=== PATIENT | male | born 1955 | race Caucasian/White ===

== ENCOUNTER → 2017-08-22 | Outpatient (REF) | payer OTHER ==
[2017-08-22 12:22] LABS: FREE T4 1.27 NG/DL (0.76-1.46)
== END ==
LOC: M LABDRAWC 11:37
PROVIDERS: ATTEND Internal Medicine Endocrinology, Diabetes & Metabolism
DX: C73 Malignant neoplasm of thyroid gland (principal)

== ENCOUNTER → 2018-02-02 | Outpatient (REF) | payer OTHER ==
[2018-02-02 12:06] LABS: ALBUMIN 3.9 GM/DL (3.2-5.2); ALBUMIN/GLOBULIN RATIO 1.26 (1.00-1.93); ALKALINE PHOSPHATASE 45 U/L (45-117); ALT/SGPT 27 U/L (12-78); ANION GAP 7 MEQ/L (8-16); AST/SGOT 18 U/L (7-37); BILIRUBIN,TOTAL 0.4 MG/DL (0.2-1.0); BLOOD UREA NITROGEN 25 MG/DL (7-18); CALCIUM LEVEL 8.7 MG/DL (8.8-10.2); CARBON DIOXIDE LEVEL 27 MEQ/L (21-32); CHLORIDE LEVEL 107 MEQ/L (98-107); CHOLESTEROL LEVEL 162 MG/DL (<200); CHOLESTEROL RISK RATIO 4.909 (<5); CREATININE FOR GFR 1.18 MG/DL (0.70-1.30); GLOMERULAR FILTRATION RATE > 60.0 (>49); GLUCOSE, FASTING 79 MG/DL (70-100); HDL CHOLESTEROL 33 MG/DL (>40); LDL CHOLESTEROL 92.6 MG/DL (<100); NON-HDL-C 129 MG/DL; POTASSIUM SERUM 4.2 MEQ/L (3.5-5.1); SODIUM LEVEL 141 MEQ/L (136-145); TRIGLYCERIDES LEVEL 182 MG/DL (<150)
== END ==
LOC: M SFHCCLAY 08:34
DX: E78.2 Mixed hyperlipidemia (principal)

== ENCOUNTER → 2018-10-19 | Outpatient (REF) | payer OTHER ==
[2018-10-23 16:39] LABS: THRYOGLOBULIN ANTIBODIES (ATA) < 1.0 IU/mL (0.0-0.9)
== END ==
LOC: M LABDRAWC 16:20
PROVIDERS: ATTEND Nuclear Medicine
DX: C73 Malignant neoplasm of thyroid gland (principal)

== ENCOUNTER → 2018-11-26 | Outpatient (REF) | payer OTHER ==
[2018-11-26 11:28] LABS: HEMATOCRIT 45.2 % (42.0-52.0); HEMOGLOBIN 15.4 g/dl (13.5-17.5); MEAN CORPUSCULAR HEMOGLOBIN 31.6 pg (27.0-33.0); MEAN CORPUSCULAR HGB CONC 34.1 g/dl (32.0-36.5); MEAN CORPUSCULAR VOLUME 92.6 fl (80.0-96.0); PLATELET COUNT, AUTOMATED 269 10^3/uL (150-450); RED BLOOD COUNT 4.88 10^6/uL (4.30-6.10); WHITE BLOOD COUNT 5.2 10^3/uL (4.0-10.0)
[2018-11-26 11:43] LABS: ALBUMIN 3.8 GM/DL (3.2-5.2); ALT/SGPT 37 U/L (12-78); BILIRUBIN,TOTAL 0.6 MG/DL (0.2-1.0); BLOOD UREA NITROGEN 16 MG/DL (7-18); CALCIUM LEVEL 8.9 MG/DL (8.8-10.2); CARBON DIOXIDE LEVEL 30 MEQ/L (21-32); CHLORIDE LEVEL 107 MEQ/L (98-107); CHOLESTEROL LEVEL 170 MG/DL (<200); CHOLESTEROL RISK RATIO 3.617 (<5); CREATININE FOR GFR 1.15 MG/DL (0.70-1.30); GLOMERULAR FILTRATION RATE > 60.0 (>49); GLUCOSE, FASTING 56 MG/DL (70-100); HDL CHOLESTEROL 47 MG/DL (>40); LDL CHOLESTEROL 97 MG/DL (<100); NON-HDL-C 123 MG/DL; SODIUM LEVEL 142 MEQ/L (136-145); TOTAL PROTEIN 6.6 GM/DL (6.4-8.2); TRIGLYCERIDES LEVEL 132 MG/DL (<150)
== END ==
LOC: M SFHCCLAY 07:40
PROVIDERS: ATTEND Family Medicine
DX: E03.9 Hypothyroidism, unspecified (principal); Z12.5 Encounter for screening for malignant neoplasm of prostate

== ENCOUNTER → 2020-01-15 | Outpatient (REF) | payer OTHER ==
[2020-01-15 17:00] LABS: FREE T4 1.76 NG/DL (0.76-1.46); THYROID STIMULATING HORMONE 0.141 uIU/ML (0.358-3.740)
[2020-01-17 14:09] LABS: THRYOGLOBULIN ANTIBODIES (ATA) < 1.0 IU/mL (0.0-0.9); THYROGLOBULIN QUANTITATIVE 44.2 ng/mL (1.4-29.2)
== END ==
LOC: M LABDRAWC 15:57
PROVIDERS: ATTEND Internal Medicine
DX: C73 Malignant neoplasm of thyroid gland (principal)

== ENCOUNTER → 2020-01-15 | Outpatient (REF) | payer OTHER ==
[2020-01-15 16:49] LABS: BLOOD UREA NITROGEN 19 MG/DL (7-18); CALCIUM LEVEL 8.9 MG/DL (8.8-10.2); CARBON DIOXIDE LEVEL 28 MEQ/L (21-32); CHLORIDE LEVEL 106 MEQ/L (98-107); CREATININE FOR GFR 1.18 MG/DL (0.70-1.30); GLOMERULAR FILTRATION RATE > 60.0 (>49); GLUCOSE, FASTING 87 MG/DL (70-100); POTASSIUM SERUM 4.3 MEQ/L (3.5-5.1); SODIUM LEVEL 140 MEQ/L (136-145)
== END ==
LOC: M LABDRAWC 15:54
PROVIDERS: ATTEND Student in an Organized Health Care Education/Training Program
DX: Z01.812 Encounter for preprocedural laboratory examination (principal)

== ENCOUNTER → 2020-02-20 | Outpatient (REF) | payer OTHER ==
[2020-02-20 17:56] LABS: ALT/SGPT 44 U/L (12-78); BILIRUBIN,TOTAL 0.6 MG/DL (0.2-1.0); BLOOD UREA NITROGEN 24 MG/DL (7-18); CALCIUM LEVEL 9.4 MG/DL (8.8-10.2); CARBON DIOXIDE LEVEL 27 MEQ/L (21-32); CHLORIDE LEVEL 105 MEQ/L (98-107); CREATININE FOR GFR 1.13 MG/DL (0.70-1.30); GLOMERULAR FILTRATION RATE > 60.0 (>49); GLUCOSE, FASTING 86 MG/DL (70-100); HEMATOCRIT 48.3 % (42.0-52.0); HEMOGLOBIN 16.5 g/dl (13.5-17.5); MEAN CORPUSCULAR HEMOGLOBIN 31.3 pg (27.0-33.0); MEAN CORPUSCULAR HGB CONC 34.2 g/dl (32.0-36.5); MEAN CORPUSCULAR VOLUME 91.5 fl (80.0-96.0); PLATELET COUNT, AUTOMATED 299 10^3/uL (150-450); POTASSIUM SERUM 4.2 MEQ/L (3.5-5.1); RED BLOOD COUNT 5.28 10^6/uL (4.30-6.10); SODIUM LEVEL 140 MEQ/L (136-145); TOTAL PROTEIN 7.4 GM/DL (6.4-8.2); WHITE BLOOD COUNT 5.8 10^3/uL (4.0-10.0)
== END ==
LOC: M SFHCCLAY 12:11
PROVIDERS: ATTEND Family Medicine
DX: K21.9 Gastro-esophageal reflux disease without esophagitis (principal); C73 Malignant neoplasm of thyroid gland

== ENCOUNTER → 2020-07-07 | Outpatient (CLI) | payer OTHER ==
[~2020-07-07] MED LIST: CBD OIL PO; LEVO175T2 PO
--- NOTE | 2020-07-07 12:45 | RADONC.CN ---
Radiation Oncology Hx/Consult Radiation Oncology Consult Date of Service: Jul 07, 2020 Pt Identifier Geovanni Maldonado is a 64 year old male with a remote history of KESSLER ablation for hyperthyroidism (>20 years ago), and subsequent papillary thyroid carcinoma [id number] s/p thyroidectomy by Dr. Noyola at [facility] and adjuvant KESSLER 100 mCi in May 2016. He remained SYED for several years. In September 2018 he underwent negative KESSLER scan in the setting of rising Tg, this was followed by US and PET- CT in November 2018 which showed suspicious lymph nodes in the left neck and likely central compartment recurrence. Was seen by Dr. Noyola 06/2019 with plan for follow up imaging and surgery in 2019. Tg on 01/15/20 was 44.1 (antibodies negative). Subsequent CT neck on 01/28/20 re-demonstrated the the mass in the left thyroid bed and adjacent cervical nodes. He underwent re-excision on 02/26/20 with pathology confirming recurrent disease with positive margins and neural involvement. He has not had post-operative imaging and Tg from 07/02/[address] Gupta is pending. He is seen today for consideration of adjuvant therapy. Diagnosis/Treatment History Oncologic History As above Interval History Feels well overall. Notes no lumps in neck, does feel that there is asymmetry in the left thyroid bed when he feels it. His appetite is good and his weight is stable. He has good energy level. Still working but planning to retire in the coming year. No heat or cold intolerance. No hair loss. No swelling or vision changes. No hoarseness or neck pain. He has no pulmonary symptoms, cough, SOB. He noted no facial swelling or pain with prior KESSLER treatment. Past Medical History: Hyperthyroid s/p KESSLER (20+ years ago) Past Surgical History: As above Family History: Brother prostate cancer No additional family with cancer No family hisotry of thyroid problems Social History: Never smoker Non-drinker Allergies / Meds Allergies: Coded Allergies: MS - No Known Drug Allergy (Unverified Allergy, Unknown, UNKNOWN, 11/26/12) Home Meds Reported Medications Cannabidiol (CBD OIL) Btl, 1 DROP PO DAILY 07/02/20 Levothyroxine Sodium (LEVOTHYROXINE SODIUM) 175 Mcg Tablet, 1 TAB PO DAILY 07/02/20 Review of Systems Constitutional: Denies: Chills, Fever, Night Sweats Eyes: Denies: Pain, Vision change HEENT: Denies: Head Aches, Dysphagia, Sore Throat Skin: Denies: Rash, Lesions, Jaundice, Bruising, Other Pulmonary: Denies: Dyspnea, Cough Cardiovascular: Denies: Chest Pain, Palpitations, Edema Gastrointestinal: Denies: Nausea, Vomiting, Abdominal Pain, Diarrhea Hematologic: Denies: Bruising, Petecchia, Enlarged Lymph Nodes Endocrine: Denies: Polydipsia, Polyphagia, Polyuria, Heat Intolerance, Cold Intolerance, Other Endocrine Sx Musculoskeletal: Denies: Neck pain, Back pain Neurological: Denies: Weakness, Numbness, Incoordination Psych: Reports: Mood Normal; Denies: Memory Issues, Thoughts of Self Harm Vital Signs Ht 66" Wt 155 lb BMI 25 T 97.7 P 64 RR 18 BP 130/81 O2 96% Pain 0 Fatigue 0 General Exam: Positive: Alert, Cooperative, No Acute Distress Eye Exam: Positive: PERRLA, EOMI; Negative: Other Eye Symptoms (No proptosis) ENT EXAM: Positive: Mucous membr. moist/pink, Pharynx Normal, Tongue Midline, Other ENT (Midline thyroiectomy scar. Mobile larynx, normal crepitus, no palpable cervical adenopathy, mild palpable fullness left thyroid bed. ) Neck Exam: Positive: +2 carotid pulse wo bruit Chest Exam: Positive: Normal air movement; Negative: Rales, Rhonchi, Wheezing Heart Exam: Positive: Rate Normal, Regular Rhythm Abdomen Exam: Positive: Soft; Negative: Tenderness, Mass Extremity Exam: Negative: Edema, Tenderness Skin Exam: Positive: Nl turgor and temperature; Negative: Rash Neuro Exam: Positive: Normal Gait, Normal Speech, Cranial Nerves 3-12 NL Psych Exam: Positive: Mental status NL, Mood NL, Memory Intact Diagnostic and Laboratory Diagnostic Review Radiologic images, relevant labs and pathology reports were personally reviewed and discussed with Mr. Maldonado. 01/15/20 Tg 44.1 ng/ml Anti-Tg ab negative 07/02/20 TSH 0.085 Free T4 1.63 Tg pending Assessment and Plan Impression Mr. Maldonado is a 64 year old male with a history of recurrent papillary thyroid cancer s/p excisional biopsy on 02/26/[address] Noyola at [facility]. He has not had post-operative imaging and has a pending Tg level from 07/02/20. He is seen for consideration of adjuvant therapy. Stage Stage II [id number] --> [id number] Performance Status ECOG 0 Plan We had an extensive discussion with Mr. Maldonado regarding the diagnosis at hand and available therapeutic options. His TSH remains appropriately suppressed on 175 mcg of synthroid daily. He is essentially asymptomatic and feeling very well at this juncture. He initially had KESSLER for hyperthyroidism remotely, with 15-20 year latency prior to development of his papillary thyroid cancer it raises the probability that his cancer is radiation induced, which can be a more recalcitrant phenotype. His last KESSLER scan in the setting of rising Tg was in 2018 and was negative by report (I am working on obtaining his previous scan files for my own personal review). He reports he did not feel an abnormality at that time. Follow up US in November 2018 showed a macroscopic nodule and neck nodes, the former, was confirmed PET avid shortly after. This timing implies with higher likelihood that his recurrence in the thyroid bed was [id number] (unless it manifested macroscopically in ~2 months, which given the history to that point was very unlikely). On the most recent surgical specimen from 02/26/20 there is positive margin in multiple sections and evidence of neural involvement, it also does not appear based on the report that the cervical nodes were sampled. Thus I have every suspicion that there is residual tumor in the neck. To better assess this I have ordered and MRI of the neck as an initial imaging study (Dr. Gupta, previously ordered an US which is reasonable and complimentary, however ultimately not as sensitive or specific as cross- sectional imaging in the post-operative setting). Also 07/02/20 Tg level is pending which will be helpful as well. If there is macroscopic residual disease on MRI that appears amenable to further surgery, I will speak with his surgeon Dr. Noyola about the prospects of re-resection out of due-diligence. If, as I suspect, there is macroscopic disease involving critical structures, not amenable to resection, or no discernible macroscopic residual (then would quantify residual as microscopic base on the margins of the most recent resection), then I think it would be reasonable to obtain an I-123 diagnostic scan, if there is no uptake (which is certainly possible given the previous negative KESSLER scan in September 2018), then I would offer adjuvant EBRT to the central neck and node bearing areas 60-70 Gy in 30-33 fractions contingent upon extent of residual. If however, there is uptake then I would offer additional KESSLER ablation. I do not think an additional PET-CT is warranted at this time unless there is florid neck or upper mediastinal involvement on MRI, and negative subsequent KESSLER scan, which would raise the possibility of distant disease. We discussed referral to endocrinology here, which may or may not have been facilitated by Dr. Gupta's office (patient doesn't recall discussion of this), he wishes to hold off for the time being. H We discussed the logistics of receiving radiation therapy in detail including the need for a 1-time planning session. After discussing the risks, benefits and alternatives to radiation therapy, Mr. Maldonado was amenable to pursuing radiotherapy. All questions were answered to the patient's satisfaction and informed consent for treatment was obtained. We instructed the patient that if there were any questions,concerns or changes in clinical status in the interim to contact us. Recommendations MRI neck w/wo contrast Pending results, subsequent I-123 scan (d/w radiology, will be happy to facilitate thyrogen stimulation and timing with them) Follow up recent Tg Consideration of adjuvant therapy to neck as discussed above Follow up with me after MRI neck Continue synthroid 175 mcg daily, TSH suppression adequate Consider endocrine referral VIRIDIANA GRIFFITHS MD Jul 07, 2020 12:41
== END ==
LOC: M ONCR 08:55
PROVIDERS: ATTEND General Practice
DX: C73 Malignant neoplasm of thyroid gland (principal)

== ENCOUNTER → 2020-07-08 | Outpatient (CLI) | payer OTHER ==
--- NOTE | 2020-07-10 04:55 | REP ---
INDICATION: THYROID CA COMPARISON: 02/11/2016 TECHNIQUE: Contreras scale and color B-mode evaluation of the thyroid gland using the linear high frequency transducer. FINDINGS: Patient is again noted to be status post total thyroidectomy. Within the left neck/thyroid bed two vascular soft tissue lesions are identified measuring 16 x 11 x 11 mm and 13 x 11 x 16 mm IMPRESSION: Two ovoid vascular lesions in the left neck cannot be characterized as normal benign lymph nodes and are suspicious for possible recurrence. Consider contrast enhanced CT of the neck for further investigation. <Electronically signed by Ketan Ryan > 07/10/20 [id number]
== END ==
LOC: M RAD 16:15
PROVIDERS: ATTEND Internal Medicine Medical Oncology
DX: C73 Malignant neoplasm of thyroid gland (principal)

== ENCOUNTER → 2020-07-10 | Outpatient (CLI) | payer OTHER ==
[~2020-07-10] MED LIST changes: +PROHANCE 279.3MG/ML 15ML VIAL As Ordered ONE
--- NOTE | 2020-07-11 08:52 | REPVR ---
PROCEDURE INFORMATION: Exam: MR Neck Without and With Contrast Exam date and time: 07/10/2020 4:24 PM Age: 64 years old Clinical indication: Condition or disease; Cancer; Prior surgery; Surgery date: 6+ months; Surgery type: Thyroid removal; Patient HX: HX thyroid CA, current abn lab work R/O throat CA TECHNIQUE: Imaging protocol: MR images of the neck without and with intravenous contrast. Contrast material: PROHANCE; Contrast volume: 14 ml; Contrast route: INTRAVENOUS (IV); COMPARISON: Thyroid, ST head+neck US 07/08/2020 4:29 PM FINDINGS: Study is degraded by patient motion artifact. The imaged portions of the parotid glands, the submandibular and sublingual glands are unremarkable. Post thyroidectomy. The imaged portions of the oral cavity and oropharynx, as well as the hypopharynx and larynx show no appreciable mass within constraints of mild motion artifact . Mild laryngeal asymmetry with medialization of the left true vocal is nonspecific although could represent underlying vocal cord paralysis. Within the left neck level 3 region there are two T2 hyperintense heterogeneously contrast enhancing nodules, with the superior lesion measuring 1.7 x 1.2 cm and the inferior lesion measuring 2 x 1 x 1.6 cm. These nodules extend along the anterior margin of the left carotid space and abut the thyroid cartilage, with irregular contrast enhancement extending from the nodules along the posterior aspect of the thyroid cartilage slightly extending into the retropharyngeal soft tissues (series 701, image 31). Heterogeneous signal intensity with questionable nodularity in the left upper lung. IMPRESSION: Two contrast enhancing lesions within the left neck level 3 region are suspicious for thyroid cancer recurrence/lymphadenopathy, with some regular extension of contrast enhancement along the anterior aspect of the carotid space and extending medially with slight extension into the retropharyngeal soft tissues. No comparison cross-sectional imaging is available to determine any interval changes. Heterogeneous signal intensity with questionable nodularity in the left upper lung. Attention on staging CT chest. Electronically signed by: Rigoberto Vick On 07/11/2020 08:51:39 AM
== END ==
LOC: M RAD 14:38
PROVIDERS: ATTEND General Practice
DX: C73 Malignant neoplasm of thyroid gland (principal)

== ENCOUNTER → 2020-08-12 | Outpatient (CLI) | payer OTHER ==
[~2020-08-12] MED LIST changes: -PROHANCE 279.3MG/ML 15ML VIAL As Ordered ONE
--- NOTE | 2020-08-12 13:49 | RADONC ---
Radiation Oncology Hx/FUP Radiation Oncology Hx/FUP Date of Service: Aug 12, 2020 Pt Identifier Geovanni Maldonado is a 64 year old male seen for a followup visit today at the department of radiation oncology for a history of 64 year old male with a remote history of KESSLER ablation for hyperthyroidism (>20 years ago), and subsequent papillary thyroid carcinoma [id number] s/p thyroidectomy by Dr. Noyola at [facility] and adjuvant KESSLER 100 mCi in May 2016. He remained SYED for several years. In September 2018 he underwent negative KESSLER scan in the setting of rising Tg, this was followed by US and PET-CT in November 2018 which showed suspicious lymph nodes in the left neck and likely central compartment recurrence. Was seen by Dr. Noyola 06/2019 with plan for follow up imaging and surgery in 2019. Tg on was 44.1 (antibodies negative). Subsequent CT neck on 01/28/20 re-demonstrated the the mass in the left thyroid bed and adjacent cervical nodes. He underwent re-excision on 02/26/20 with pathology confirming recurrent disease with positive margins and neural involvement. He was seen here in June 2020, Tg was 15.5 on 07/02/20. He underwent MRI of the neck on 07/10/20 which showed enhancing left level III soft tissue nodules consistent with metastatic thyroid cancer. Diagnosis/Treatment History Oncologic History As above Interval History Feels generally well. He believes that the left cervical nodes are now palpable and prominent. No bone pain or CP, SOB, dysphagia. Appetite good and weight stable. Current Therapy Pending Stage Stage II [id number] --> [id number] Social History: Never smoker Non-drinker Allergies / Meds Allergies: Coded Allergies: MS - No Known Drug Allergy (Unverified Allergy, Unknown, UNKNOWN, 11/26/12) Home Meds Reported Medications Cannabidiol (CBD OIL) Btl, 1 DROP PO DAILY 07/02/20 Levothyroxine Sodium (LEVOTHYROXINE SODIUM) 175 Mcg Tablet, 1 TAB PO DAILY 07/02/20 Review of Systems Review of Systems Constitutional: Denies: Chills, Fever, Weakness, Fatigue, Weight Loss Eyes: Denies: Pain HEENT: Denies: Head Aches, Sore Throat Skin: Denies: Rash Pulmonary: Denies: Dyspnea, Cough Cardiovascular: Denies: Chest Pain, Palpitations Gastrointestinal: Denies: Nausea, Vomiting Genitourinary: Denies: Dysuria, Frequency Hematologic: Denies: Bruising Endocrine: Denies: Polydipsia, Heat Intolerance, Cold Intolerance Musculoskeletal: Denies: Neck pain, Back pain Neurological: Denies: Weakness, Numbness Psych: Reports: Mood Normal Physical Examination Vital Signs Ht 66" Wt 156 lb BMI 25 T 97.8 P 60 BP 115/77 O2 96% Pain 0 Fatigue 0 General Exam: Positive: Alert, Cooperative, No Acute Distress Eye Exam: Positive: PERRLA, EOMI ENT EXAM: Positive: Atraumatic, Pharynx Normal, Tongue Midline Neck Exam: Positive: Supple, Lymphadenopathy (There is a soft and mobile left level III soft tissue aggregate c/w known diana metastases) Chest Exam: Positive: Clear to auscultation, Normal air movement Heart Exam: Positive: Rate Normal, Regular Rhythm Abdomen Exam: Positive: Soft; Negative: Tenderness Extremity Exam: Negative: Edema Skin Exam: Positive: Nl turgor and temperature Neuro Exam: Positive: Normal Gait, Normal Speech, Cranial Nerves 3-12 NL Psych Exam: Positive: Mental status NL Diagnostic and Laboratory Diagnostic Review Radiologic images, relevant labs and pathology reports were personally reviewed and discussed with Mr. Maldonado. Assessment and Plan Impression Assessment Mr. Maldonado is a 64 year old male with a history of remote history of KESSLER ablation for hyperthyroidism (>20 years ago), and subsequent papillary thyroid carcinoma [id number] s/p thyroidectomy by Dr. Noyola at [facility] and adjuvant KESSLER 100 mCi in May 2016. He remained SYED for several years. In September 2018 he underwent negative KESSLER scan in the setting of rising Tg, this was followed by US and PET-CT in November 2018 which showed suspicious lymph nodes in the left neck and likely central compartment recurrence. Was seen by Dr. Noyola 06/2019 with plan for follow up imaging and surgery in 2019. Tg on 01/15/20 was 44.1 (antibodies negative). Subsequent CT neck on 01/28/20 re-demonstrated the the mass in the left thyroid bed and adjacent cervical nodes. He underwent re-excision on 02/26/20 with pathology confirming recurrent disease with positive margins and neural involvement. He was seen here in June 2020, Tg was 15.5 on 07/02/20. He underwent MRI of the neck on 07/10/20 which showed enhancing left level III soft tissue nodules consistent with metastatic thyroid cancer. He presents today to discuss next steps. He has seen Dr. Bassett, by his report she recommends KESSLER. I have concerns about the efficacy of this, given that at the time of recurrence in early 2018 his disease in the thyroid bed and neck did not concentrate iodine at all on whole body scan from 10/16/19. His disease rather was detected by US and PET-CT in November 2018. The diana metastases which remain now post resection of the left thyroid bed recurrence by Dr. Noyola in February 2020, I believe were present at the time of PET in 2019, per my personal review of the images. These have since grown and are now palpable on exam today. If they do not concentrate iodine, then they are unlikely to respond to KESSLER and such an approach would only waste time and effort and potentially spoil his chance for a good oncologic outcome. I am not opposed to obtaining a diagnostic KESSLER scan, to prove once and for all that there is/is not uptake in these lesions. I will discuss this with Dr. Bassett. I also appreciate that surgical resection would be preferred to any other modality for addressing the known lesions, if it is feasible. I think the fact that Dr. Noyola did not resect the left level III mets at the time of surgery to the left thyroid bed recurrence in February speaks for itself. But I will discuss with him whether or not any surgery can be done at this time out of due diligence. If we establish that the lesions are not likely to respond to KESSLER and are unresectable. which to some extent I think has already been demonstrated based on studies to date, then I would offer EBRT as a viable alternative, I would give 70 Gy in 35 fractions w/ VMAT to the gross disease, 60 Gy to the thyroid bed and 54 Gy to the elective necks and upper mediastinal diana stations. With this technique and the fact that there is no mucosal sites needing treatment I expect he would tolerate it very well with minimal long-term sequelae. He in principal agrees with pursuing EBRT, if for no other reason than prior KESSLER did not work to effect a cure. If we pursue EBRT, then I would follow him with PET-CT in 3 months, as his disease was previously PET avid, this would be an ideal initial response assessment modality. I will follow up with him after I talk to his other specialists. Performance Status ECOG 0 Plan Will speak with Drs. Bassett and Dennys Barring positive uptake in the known diana metastases on diagnostic KESSLER scan, w ould not recommend additional adjuvant KESSLER as it is unlikely to be of benefit EBRT consideration as discussed above Repeat Tg today Will follow up with patient by phone once we have consensus Mr. Maldonado was encouraged to call with questions or concerns in the interim period. VIRIDIANA GRIFFITHS MD Aug 12, 2020 13:49
--- NOTE | 2020-08-13 09:18 | RADENCPD ---
Date/Time of Encounter Date of Encounter: Aug 13, 2020 Time of Encounter: 08:[address] Noyola last evening regarding the prospects for further surgery to address this recurrence, per him there is no role at this time given the location and extent of recurrence. He also opined that the nature of the central compartment recurrence that he operated on in February of this year was more extensive than the pathology report would suggest, margins were positive, there was extensive chylous fluid contamination in the thyroid bed area during the surgery, altogether this renders the possibility of tumor seeding more likely. I also spoke with Dr. Bassett this morning, she plans to be in contact with the nuclear medicine group at [facility] regarding the utility of additional KESSLER in this case. Of note, they are aware that the recurrence did not concentrate KESSLER on WBS from 2018, however with therapeutic dosing there may still be some jaida efit. I am not sure in this case that mild concentration of KESSLER in the residual disease will be sufficient to eradicate this locoregional recurrence, however, I do not see any harm in trying KESSLER, which if recommended and successful could be further temporizing and minimally toxic. Ultimately though, as was shown to be the case upon his initial surgery in 2015 when he did receive therapeutic KESSLER and subsequently recurred, I do not think KESSLER will cure him. I will leave it up to the patient and Dr. Bassett to decide together what the next best step will be. If he opts against KESSLER (or it is altogether not recommended), then I will proceed with EBRT as outlined in my note from yesterday. VIRIDIANA GRIFFITHS MD Aug 13, 2020 09:18
== END ==
LOC: M ONCR 10:39
PROVIDERS: ATTEND General Practice
DX: Z85.850 Personal history of malignant neoplasm of thyroid (principal)

== ENCOUNTER 2020-11-10 15:15 | Outpatient (RCR) | payer OTHER ==
[~2020-11-10 15:15] MED LIST changes: +VITA100T59 PO
== END 2020-11-25 ==
LOC: M ST 15:15
PROVIDERS: ATTEND General Practice
DX: C73 Malignant neoplasm of thyroid gland (principal)

== ENCOUNTER → 2020-11-12 | Outpatient (CLI) | payer OTHER ==
[~2020-11-12] MED LIST changes: +PROHANCE 279.3MG/ML 15ML VIAL As Ordered ONE
--- NOTE | 2020-11-12 19:34 | REPVR ---
PROCEDURE INFORMATION: Exam: MR Neck Without and With Contrast Exam date and time: 11/12/2020 1:04 PM Age: 65 years old Clinical indication: Condition or disease; Cancer; Patient HX: HX thyroid CA potential cells in lt side of neck; Additional info: Recurrent papallary thyroid CA, lt neck TECHNIQUE: Imaging protocol: MR images of the neck without and with intravenous contrast. Contrast material: PROHANCE; Contrast volume: 17 ml; Contrast route: INTRAVENOUS (IV); COMPARISON: MRI ORBIT FACE NECK W/O FOLL W 07/10/2020 3:37 PM FINDINGS: Nasopharynx: Unremarkable. Oropharynx: Unremarkable. Hypopharynx: Unremarkable. Larynx: Unremarkable. Submandibular/Parotid glands: Unremarkable. Retropharyngeal space: Unremarkable. Vasculature: Unremarkable. Lymph nodes: Multiple enhancing nodular masses adjacent to the left submandibular gland measuring up to 1.3 x 1.8 cm suspicious for malignant adenopathy in this patient with known history of papillary thyroid carcinoma. Soft tissues: Unremarkable. Bones/joints: The cervical spine demonstrates mild degenerative changes. IMPRESSION: Multiple enhancing nodular masses adjacent to the left submandibular gland measuring up to 1.3 x 1.8 cm suspicious for malignant adenopathy in this patient with known history of papillary thyroid carcinoma. Electronically signed by: Patricio Callaway On 11/12/2020 19:34:18 PM
== END ==
LOC: M RAD 11:45
PROVIDERS: ATTEND General Practice
DX: C73 Malignant neoplasm of thyroid gland (principal)
CPT/HCPCS: 70543; A9576

== ENCOUNTER → 2020-12-01 | Outpatient (CLI) | payer OTHER ==
[~2020-12-01] MED LIST changes: -PROHANCE 279.3MG/ML 15ML VIAL As Ordered ONE
[2020-12-01 13:10] LABS: ALBUMIN 3.9 GM/DL (3.2-5.2); ALT/SGPT 34 U/L (12-78); BILIRUBIN,TOTAL 0.5 MG/DL (0.2-1.0); BLOOD UREA NITROGEN 11 MG/DL (7-18); CARBON DIOXIDE LEVEL 33 MEQ/L (21-32); CHLORIDE LEVEL 108 MEQ/L (98-107); CREATININE FOR GFR 0.87 MG/DL (0.70-1.30); FREE T4 1.68 NG/DL (0.76-1.46); GLOMERULAR FILTRATION RATE > 60.0 (>49); GLUCOSE, FASTING 74 MG/DL (70-100); POTASSIUM SERUM 4.1 MEQ/L (3.5-5.1); SODIUM LEVEL 142 MEQ/L (136-145); THYROGLOBULIN ANTIBODY < 15.0 U/ML (<60.0); THYROID STIMULATING HORMONE 0.017 uIU/ML (0.358-3.740); TOTAL PROTEIN 6.7 GM/DL (6.4-8.2)
== END ==
LOC: M LAB 11:46
PROVIDERS: ATTEND General Practice
DX: C73 Malignant neoplasm of thyroid gland (principal)

== ENCOUNTER → 2020-12-25 | Outpatient (RCR) | payer OTHER ==
[2020-12-23 10:08] LABS: THRYOGLOBULIN ANTIBODIES (ATA) < 1.0 IU/mL (0.0-0.9); THYROGLOBULIN QUANTITATIVE 14.3 ng/mL (1.4-29.2)
== END ==
LOC: M ONCR 12-01 10:37
PROVIDERS: ATTEND General Practice
DX: C73 Malignant neoplasm of thyroid gland (principal)

== ENCOUNTER 2021-01-21 15:00 | Outpatient (RCR) | payer OTHER ==
[~2021-01-21 15:00] MED LIST changes: +MAGICMW SSP; +OXYC1SOL3 PO
== END 2021-01-25 ==
LOC: M ONCR 15:00
PROVIDERS: ATTEND General Practice
DX: C73 Malignant neoplasm of thyroid gland (principal)

== ENCOUNTER 2021-02-10 15:00 | Outpatient (RCR) | payer OTHER | END 2021-02-24 | LOC: M ONCR 15:00 | PROVIDERS: ATTEND General Practice | DX: C73 Malignant neoplasm of thyroid gland (principal) ==

== ENCOUNTER → 2021-04-26 | Outpatient (CLI) | payer OTHER ==
--- NOTE | 2021-04-26 15:43 | REP ---
INDICATION: RESTAGING THYROID CANCER C73. Status post thyroidectomy and more recently left neck surgery for recurrence. Post radiation therapy. COMPARISON: Comparison PET-CT study [facility] December 21, 2018. Comparison MRI study of the neck November 12, 2020. TECHNIQUE: Forty-seven minutes following the intravenous injection of a 8.85 mCi dose of F-18 FDG, three-dimensional PET scintigraphy is acquired from the skull base to the proximal thighs. Triplanar noncontrast CT scanning is acquired through the same anatomic range for attenuation correction, and image registration with scan parameters optimized to minimize radiation exposure to the patient. PET scintigraphy and CT datasets were fused and displayed on a workstation with multiplanar and projection display capability. FINDINGS: The previously noted hypermetabolic soft tissue nodule along the left lateral wall of the sub cricoid trachea is no longer apparent. However, the arytenoid cartilages are asymmetric today. The left arytenoid cartilage is sclerotic compared to the right and this is a change from prior study. There is also some increased uptake in the arytenoid cartilage itself on the left, maximum standard uptake value 3.86. There is no evidence of soft tissue hypermetabolic uptake in the left neck. The previously noted tissue adjacent to the submandibular gland is no longer apparent. No new diana focus is seen on either side. There is no abnormal hypermetabolic uptake within the thorax. No abnormal abdominal or pelvic hypermetabolic uptake is seen. No abnormal skeletal uptake is observed. IMPRESSION: Sclerosis and mildly increased metabolic uptake within the left arytenoid cartilage. Uncertain significance, possibly post radiation change. Otherwise improved. <Electronically signed by Jj Hairston > 04/26/21 [id number]
== END ==
LOC: M PLARAD 11:59
PROVIDERS: ATTEND General Practice
DX: C73 Malignant neoplasm of thyroid gland (principal)
CPT/HCPCS: 78815; A9552

== ENCOUNTER → 2021-05-12 | Outpatient (CLI) | payer OTHER ==
--- NOTE | 2021-05-13 09:17 | RADONC ---
Radiation Oncology Hx/FUP Radiation Oncology Hx/FUP Date of Service: May 12, 2021 Pt Identifier Geovanni Maldonado is a 65 year old male with a remote history of KESSLER ablation for hyperthyroidism (>20 years ago), and subsequent papillary thyroid carcinoma [id number] s/p thyroidectomy by Dr. Noyola at [facility] and adjuvant KESSLER 100 mCi in May 2016. He remained SYED for several years. In September 2018 he underwent negative KESSLER scan in the setting of rising Tg, this was followed by US and PET- CT in November 2018 which showed suspicious lymph nodes in the left neck and likely central compartment recurrence. Was seen by Dr. Noyola 06/2019 with plan for follow up imaging and surgery in 2019. Tg on 01/15/20 was 44.1 (antibodies negative). Subsequent CT neck on 01/28/20 re-demonstrated the the mass in the left thyroid bed and adjacent cervical nodes. He underwent re-excision on 02/26/20 with pathology confirming recurrent disease with positive margins and neural involvement. 07/10/20 MRI orbit face and neck confirmed recurrence in the left level III. He underwent resection with Dr. Noyola on 10/30/20 pathology revealed a large lesion with GUME+. MRI post-operatively on 11/12/20 showed additional focus of metastatic adenopathy in the left submental region. He then underwent adjuvant RT 70 Gy in 35 fractions from 12/21/20-02/10/21. PET-CT on 04/26/21 was negative. Diagnosis/Treatment History Oncologic History Relevant data: Pathology from the operation 10/30/20: DIAGNOSIS LEFT LATERAL NECK, LYMPH NODE DISSECTION: ONE OF FIVE LYMPH NODES, POSITIVE FOR METASTATIC PAPILLARY THYROID CARCINOMA (1/5). THE METASTATIC FOCUS MEASURES 2.0 CM. PERINODAL ANGIOLYMPHATIC INVASION IDENTIFIED. EXTRANODAL EXTENSION IDENTIFIED. 04/26/21 PET-CT FINDINGS: The previously noted hypermetabolic soft tissue nodule along the left lateral wall of the sub cricoid trachea is no longer apparent. However, the arytenoid cartilages are asymmetric today. The left arytenoid cartilage is sclerotic compared to the right and this is a change from prior study. There is also some increased uptake in the arytenoid cartilage itself on the left, maximum standard uptake value 3.86. There is no evidence of soft tissue hypermetabolic uptake in the left neck. The previously noted tissue adjacent to the submandibular gland is no longer apparent. No new diana focus is seen on either side. There is no abnormal hypermetabolic uptake within the thorax. No abnormal abdominal or pelvic hypermetabolic uptake is seen. No abnormal skeletal uptake is observed. IMPRESSION: Sclerosis and mildly increased metabolic uptake within the left arytenoid cartilage. Uncertain significance, possibly post radiation change. Otherwise improved. Item Value Date Time Thyroglobulin Level 0.9 ng/mL L 08/22/17 0920 Thyroglobulin Level 20.0 ng/mL 10/19/18 1017 Thyroglobulin Level 44.2 ng/mL H 01/15/20 0954 Thyroglobulin Level 15.5 ng/mL 07/02/20 1452 Thyroglobulin Level 16.6 ng/mL 08/12/20 1128 Thyroglobulin Level 24.3 ng/mL 09/16/20 0924 Thyroglobulin Level 14.3 ng/mL 12/21/20 1521 Item Value Date Time Anti-Thyroglobulin Antibody < 1.0 IU/mL 12/21/20 1521 Item Value Date Time Thyroid Stimulating Hormone (TSH) 0.017 uIU/ML L 12/01/20 1159 Free Thyroxine 1.68 NG/DL H 12/01/20 1159 Interval History Geovanni reports he is doing well. Has some persistent dry mouth but this is better in recent weeks. Tastes have returned. No dysphagia or oral pain. Appetite is good. 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 He does note some stiffness in the neck. Has seen dentist recently, using fluoride trays at night. Current Therapy Synthroid 175 mcg daily Stage Papillary thyroid cancer stage II [id number] --> [id number] stage II Social History: Never smoker Non-drinker Allergies / Meds Allergies: Coded Allergies: MS - No Known Drug Allergy (Unverified Allergy, Unknown, UNKNOWN, 11/26/12) Home Meds Active Scripts Oxycodone HCl (Oxycodone HCl) 5 Mg/5 Ml Solution, 5 ML PO Q4HP PRN for MUCOSITIS MDD 30 Milliliter(s) for 7 Days, #210 ML Prov:VIRIDIANA GRIFFITHS MD 01/11/21 Magic Mouthwash (First-Mouthwash Blm) 1 Ea Susp, 10 ML SSP QID PRN for MUCOSITIS, #240 ML 5 Refills (Diphenhydramine/maalox/lidocaine 1:1:1) May compound if kit unavailable/not covered by insurance Prov:VIRIDIANA GRIFFITHS MD 01/04/21 Reported Medications Ascorbic Acid (Vitamin C) Unknown Strength Tablet, PO DAILY for 30 Days, #30 TAB 09/16/20 Cannabidiol (CBD OIL) Btl, 1 DROP PO DAILY 07/02/20 Levothyroxine Sodium (LEVOTHYROXINE SODIUM) 175 Mcg Tablet, 1 TAB PO DAILY 07/02/20 Review of Systems Review of Systems Constitutional: Denies: Fever, Fatigue, Weight Loss Eyes: Denies: Pain HEENT: Denies: Head Aches, Ear Pain, Dysphagia, Sore Throat Skin: Denies: Rash Pulmonary: Denies: Dyspnea, Cough Cardiovascular: Denies: Chest Pain, Palpitations Gastrointestinal: Denies: Abdominal Pain Hematologic: Denies: Bruising Endocrine: Denies: Cold Intolerance Musculoskeletal: Denies: Neck pain, Back pain Neurological: Denies: Weakness, Numbness Psych: Reports: Mood Normal Physical Examination Vital Signs Wt 149 lbs T 98 P 67 RR 18 BP 119/72 O2 99% Pain 0 Fatigue 0 General Exam: Alert, Cooperative, No Acute Distress Eye Exam: PERRLA, EOMI ENT EXAM: Atraumatic, Mucous membr. moist/pink, Pharynx Normal, Tongue Midline, Other ENT (Dentition in good condition. No oral lesions. There is normal grade 1 fibrosis and hyperpigmentation in the necks. No cervical adenopathy) Chest Exam: Clear to auscultation, Normal air movement Heart Exam: Rate Normal, Regular Rhythm Abdomen Exam: Soft Extremity Exam: Negative: Edema Skin Exam: Nl turgor and temperature Neuro Exam: Normal Gait, Normal Speech, Cranial Nerves 3-12 NL Psych Exam: Mental status NL Diagnostic and Laboratory Diagnostic Review Radiologic images, relevant labs and pathology reports were personally reviewed and discussed with Mr. Maldonado. Assessment and Plan Impression Assessment Mr. Maldonado is a 65 year old male with a remote history of KESSLER ablation for hyperthyroidism (>20 years ago), and subsequent papillary thyroid carcinoma [id number] s/p thyroidectomy by Dr. Noyola at [facility] and adjuvant KESSLER 100 mCi in May 2016. He remained SYED for several years. In September 2018 he underwent negative KESSLER scan in the setting of rising Tg, this was followed by US and PET- CT in November 2018 which showed suspicious lymph nodes in the left neck and likely central compartment recurrence. Was seen by Dr. Noyola 06/2019 with plan for follow up imaging and surgery in 2019. Tg on 01/15/20 was 44.1 (antibodies negative). Subsequent CT neck on 01/28/20 re-demonstrated the the mass in the left thyroid bed and adjacent cervical nodes. He underwent re-excision on 02/26/20 with pathology confirming recurrent disease with positive margins and neural involvement. 07/10/20 MRI orbit face and neck confirmed recurrence in the left level III. He underwent resection with Dr. Noyola on 10/30/20 pathology revealed a large lesion with GUME+. MRI post-operatively on 11/12/20 showed additional focus of metastatic adenopathy in the left submental region. He then underwent adjuvant RT 70 Gy in 35 fractions from 12/21/20-02/10/21. PET-CT on 04/26/21 was negative. He is doing well post-RT. He has only dry mouth which was expected given the sacrifice of the left submandibular gland with RT, and some mild fibrosis in the necks. If his hoarseness persists, I will scope him at subsequent visit. I encouraged him to continue good dental care, I agree with the fluoride tr eatments prescribed by his dentist. I also think he could benefit from biotene. For the fibrosis, he should continue to do active ROM of the neck several times daily. With respect to the PET-CT, it is negative. This is reassuring. However, more telling will be the Tg level which needs to be drawn. I have given him a lab order for this and will follow up with him by phone. I am also checking calcium levels today too. At next visit I will initiate the survivorship phase of his care provided the Tg has appropriately declined post-treatment. Performance Status ECOG 0 Plan Follow up in 3 months Check Tg, Anti-TG AB, TSH, free T4, CMP, CBC today Scope at next visit if hoarseness persistent, likely inflammatory in nature Mr. Maldonado was encouraged to call with questions or concerns in the interim period. Billing Statement Total time of [32] minutes was spent preparing for the visit [2], obtaining HPI [7], examining the patient [4], reviewing diagnostic tests [3], discussing management options [6], coordinating care [2], and writing this note [8]. VIRIDIANA GRIFFITHS MD May 12, 2021 17:16
== END ==
LOC: M ONCR 14:54
PROVIDERS: ATTEND General Practice
DX: C73 Malignant neoplasm of thyroid gland (principal); E03.9 Hypothyroidism, unspecified; Z79.890 Hormone replacement therapy; Z92.3 Personal history of irradiation

== ENCOUNTER → 2021-05-14 | Outpatient (REF) | payer OTHER ==
[2021-05-14 12:26] LABS: BASO % 0.9 % (0.0-1.0); EOS # 0.1 10^3/uL (0.0-0.5); EOS % 2.8 % (0.0-3.0); HEMOGLOBIN 15.6 g/dl (13.5-17.5); MEAN CORPUSCULAR HEMOGLOBIN 31.1 pg (27.0-33.0); MEAN CORPUSCULAR HGB CONC 33.9 g/dl (32.0-36.5); MEAN CORPUSCULAR VOLUME 91.8 fl (80.0-96.0); MONO # 0.4 10^3/uL (0.0-0.8); MONO % 12.5 % (2.0-8.0); NEUTROPHILS # 1.8 10^3/uL (1.5-8.5); NEUTROPHILS % 53.5 % (36.0-66.0); PLATELET COUNT, AUTOMATED 235 10^3/uL (150-450); RED BLOOD COUNT 5.01 10^6/uL (4.30-6.10); WHITE BLOOD COUNT 3.3 10^3/uL (4.0-10.0)
[2021-05-14 13:11] LABS: ALBUMIN 3.3 GM/DL (3.2-5.2); ALT/SGPT 25 U/L (12-78); BILIRUBIN,TOTAL 0.4 MG/DL (0.2-1.0); BLOOD UREA NITROGEN 16 MG/DL (7-18); CALCIUM LEVEL 8.7 MG/DL (8.8-10.2); CARBON DIOXIDE LEVEL 31 MEQ/L (21-32); CHLORIDE LEVEL 108 MEQ/L (98-107); CREATININE FOR GFR 1.07 MG/DL (0.70-1.30); FREE T4 1.71 NG/DL (0.76-1.46); GLOMERULAR FILTRATION RATE > 60.0 (>49); GLUCOSE, FASTING 87 MG/DL (70-100); POTASSIUM SERUM 4.3 MEQ/L (3.5-5.1); SODIUM LEVEL 143 MEQ/L (136-145); THYROID STIMULATING HORMONE 0.017 uIU/ML (0.358-3.740); TOTAL PROTEIN 6.5 GM/DL (6.4-8.2)
[2021-05-15 12:09] LABS: THRYOGLOBULIN ANTIBODIES (ATA) < 1.0 IU/mL (0.0-0.9); THYROGLOBULIN QUANTITATIVE 4.4 ng/mL (1.4-29.2)
== END ==
LOC: M LABDRAWC 11:45
PROVIDERS: ATTEND General Practice
DX: C73 Malignant neoplasm of thyroid gland (principal)

== ENCOUNTER → 2021-06-30 | Outpatient (REF) | payer OTHER | LOC: M LAB REF 19:20 | PROVIDERS: ATTEND Physician Assistant | DX: L82.1 Other seborrheic keratosis (principal) ==

== ENCOUNTER → 2021-08-03 | Outpatient (CLI) | payer OTHER ==
[2021-08-03 11:11] LABS: BASO % 0.4 % (0.0-1.0); EOS # 0.1 10^3/uL (0.0-0.5); EOS % 2.2 % (0.0-3.0); HEMATOCRIT 46.7 % (42.0-52.0); LYMPH # 1.5 10^3/uL (1.5-5.0); LYMPH % 28.7 % (24.0-44.0); MEAN CORPUSCULAR HEMOGLOBIN 31.2 pg (27.0-33.0); MEAN CORPUSCULAR HGB CONC 34.3 g/dl (32.0-36.5); MONO # 0.6 10^3/uL (0.0-0.8); MONO % 11.5 % (2.0-8.0); NEUTROPHILS # 2.9 10^3/uL (1.5-8.5); NEUTROPHILS % 56.6 % (36.0-66.0); PLATELET COUNT, AUTOMATED 259 10^3/uL (150-450); RED BLOOD COUNT 5.13 10^6/uL (4.30-6.10); WHITE BLOOD COUNT 5.1 10^3/uL (4.0-10.0)
[2021-08-03 11:50] LABS: ALBUMIN 3.7 GM/DL (3.2-5.2); ALT/SGPT 44 U/L (12-78); BILIRUBIN,TOTAL 0.6 MG/DL (0.2-1.0); BLOOD UREA NITROGEN 19 MG/DL (7-18); CALCIUM LEVEL 9.1 MG/DL (8.8-10.2); CARBON DIOXIDE LEVEL 31 MEQ/L (21-32); CHLORIDE LEVEL 104 MEQ/L (98-107); CREATININE FOR GFR 1.16 MG/DL (0.70-1.30); FREE T4 1.36 NG/DL (0.76-1.46); GLOMERULAR FILTRATION RATE > 60.0 (>49); GLUCOSE, FASTING 81 MG/DL (70-100); POTASSIUM SERUM 4.1 MEQ/L (3.5-5.1); SODIUM LEVEL 139 MEQ/L (136-145); THYROID STIMULATING HORMONE 0.097 uIU/ML (0.358-3.740); TOTAL PROTEIN 7.1 GM/DL (6.4-8.2)
[2021-08-03 11:51] LABS: TOTAL 25(OH) VITAMIN D 36.2 NG/ML (30.0-100.0)
--- NOTE | 2021-08-03 13:02 | RADONC ---
Radiation Oncology Hx/FUP Radiation Oncology Hx/FUP Date of Service: Aug 03, 2021 Pt Identifier Geovanni Maldonado is a 65 year old male with a remote history of KESSLER ablation for hyperthyroidism (>20 years ago), and subsequent papillary thyroid carcinoma [id number] s/p thyroidectomy by Dr. Noyola at [facility] and adjuvant KESSLER 100 mCi in May 2016. He remained SYED for several years. In September 2018 he underwent negative KESSLER scan in the setting of rising Tg, this was followed by US and PET- CT in November 2018 which showed suspicious lymph nodes in the left neck and likely central compartment recurrence. Was seen by Dr. Noyola 06/2019 with plan for follow up imaging and surgery in 2019. Tg on 01/15/20 was 44.1 (antibodies negative). Subsequent CT neck on 01/28/20 re-demonstrated the the mass in the left thyroid bed and adjacent cervical nodes. He underwent re-excision on 02/26/20 with pathology confirming recurrent disease with positive margins and neural involvement. 07/10/20 MRI orbit face and neck confirmed recurrence in the left level III. He underwent resection with Dr. Noyola on 10/30/20 pathology revealed a large lesion with GUME+. MRI post-operatively on 11/12/20 showed additional focus of metastatic adenopathy in the left submental region. He then underwent adjuvant RT 70 Gy in 35 fractions from 12/21/20-02/10/21. PET-CT on 04/26/21 was negative. Diagnosis/Treatment History Oncologic History As above Relevant data: Item Value Date Time Thyroglobulin Level 0.9 ng/mL L 08/22/17 0920 Thyroglobulin Level 20.0 ng/mL 10/19/18 1017 Thyroglobulin Level 44.2 ng/mL H 01/15/20 0954 Thyroglobulin Level 15.5 ng/mL 07/02/20 1452 Thyroglobulin Level 16.6 ng/mL 08/12/20 1128 Thyroglobulin Level 24.3 ng/mL 09/16/20 0924 Thyroglobulin Level 14.3 ng/mL 12/21/20 1521 Thyroglobulin Level 4.4 ng/mL 05/14/21 0815 Item Value Date Time Anti-Thyroglobulin Antibody < 1.0 IU/mL 05/14/21 0815 Item Value Date Time Free Thyroxine 1.36 NG/DL 08/03/21 1046 Thyroid Stimulating Hormone (TSH) 0.097 uIU/ML L 08/03/21 1046 Interval History Geovanni is eating and drinking well. Working on [employer] and [employer] projects in full [employer]. He has no pain in the throat. He has some hoarseness remaining, but improved compared to April. He has some dry mouth at night which is manageable. He feels some fullness in the central neck beneath his chin. Current Therapy Synthroid 175 mcg daily Stage Papillary thyroid cancer stage II [id number] --> [id number] stage II Social History: Never smoker Non-drinker Allergies / Meds Allergies: Coded Allergies: MS - No Known Drug Allergy (Unverified Allergy, Unknown, UNKNOWN, 11/26/12) Home Meds Active Scripts Magic Mouthwash (First-Mouthwash Blm) 1 Ea Susp, 10 ML SSP QID PRN for MUCOSITI S, #240 ML 5 Refills (Diphenhydramine/maalox/lidocaine 1:1:1) May compound if kit unavailable/not covered by insurance Prov:VIRIDIANA GRIFFITHS MD 01/04/21 Reported Medications Ascorbic Acid (Vitamin C) Unknown Strength Tablet, PO DAILY for 30 Days, #30 TAB 09/16/20 Cannabidiol (CBD OIL) Btl, 1 DROP PO DAILY 07/02/20 Levothyroxine Sodium (LEVOTHYROXINE SODIUM) 175 Mcg Tablet, 1 TAB PO DAILY 07/02/20 Discontinued Scripts Oxycodone HCl (Oxycodone HCl) 5 Mg/5 Ml Solution, 5 ML PO Q4HP PRN for MUCOSITIS MDD 30 Milliliter(s) for 7 Days, #210 ML Prov:VIRIDIANA GRIFFITHS MD 01/11/21 Review of Systems Review of Systems Eyes: Denies: Pain HEENT: Denies: Head Aches, Ear Pain, Dysphagia, Post Nasal Drip, Sore Throat Skin: Denies: Rash Pulmonary: Denies: Dyspnea Cardiovascular: Denies: Chest Pain Hematologic: Denies: Enlarged Lymph Nodes Endocrine: Denies: Cold Intolerance Musculoskeletal: Denies: Neck pain Neurological: Denies: Weakness, Numbness Psych: Reports: Mood Normal Physical Examination Vital Signs Ht 66" Wt 155 lbs BMI 25 T 97.4 P 65 RR 18 BP 113/78 O2 96% Pain 0 Fatigue 0 General Exam: Alert, Cooperative, No Acute Distress Eye Exam: PERRLA, EOMI ENT EXAM: Atraumatic, Mucous membr. moist/pink, Pharynx Normal, Tongue Midline; Negative: Pharyngeal Edema Neck Exam: Supple; Negative: Lymphadenopathy, Other (BL necks without adenopathy or palpable lesions, no trismus, laryngeal crepitus intact) Chest Exam: Clear to auscultation Heart Exam: Rate Normal Abdomen Exam: Soft Extremity Exam: Negative: Edema Skin Exam: Nl turgor and temperature, Other skin issue Neuro Exam: Normal Gait, Normal Speech, Cranial Nerves 3-12 NL Psych Exam: Mental status NL Diagnostic and Laboratory Diagnostic Review Radiologic images, relevant labs and pathology reports were personally reviewed and discussed with Marilyn Joel. Laboratory Tests 08/03/21 10:46 Laboratory Tests 08/03/21 10:46: White Blood Count 5.1, Red Blood Count 5.13, Hemoglobin 16.0, Hematocrit 46.7, Mean Corpuscular Volume 91.0, Mean Corpuscular Hemoglobin 31.2, Mean Corpuscular Hemoglobin Concent 34.3, Red Cell Distribution Width 12.7, Platelet Count 259, Immature Granulocyte % (Auto) 0.6, Neutrophils (%) (Auto) 56.6, Lymphocytes (%) (Auto) 28.7, Monocytes (%) (Auto) 11.5H, Eosinophils (%) (Auto) 2.2, Basophils (%) (Auto) 0.4, Neutrophils # (Auto) 2.9, Lymphocytes # (Auto) 1.5, Monocytes # (Auto) 0.6, Eosinophils # (Auto) 0.1, Basophils # (Auto) 0.0, Nucleated Red Blood Cells % (auto) 0.0, Sodium Level 139, Potassium Level 4.1, Chloride Level 104, Carbon Dioxide Level 31, Anion Gap 4L, Blood Urea Nitrogen 19H, Creatinine 1.16, Glomerular Filtration Rate > 60.0, Fasting Glucose 81, Calcium Level 9.1, Total Bilirubin 0.6, Aspartate Amino Transf (AST/SGOT) 25, Alanine Aminotransferase (ALT/SGPT) 44, Alkaline Phosphatase 47, Total Protein 7.1, Albumin 3.7, Albumin/Globulin Ratio 1.1, 25-Hydroxy Vitamin D Total 36.2, Thyroid Stimulating Hormone (TSH) 0.097L, Free Thyroxine 1.36 Assessment and Plan Impression Assessment Mr. Maldonado is a 65 year old male with a remote history of KESSLER ablation for hyperthyroidism (>20 years ago), and subsequent papillary thyroid carcinoma [id number] s/p thyroidectomy by Dr. Noyola at [facility] and adjuvant KESSLER 100 mCi in May 2016. He remained SYED for several years. In September 2018 he underwent negative KESSLER scan in the setting of rising Tg, this was followed by US and PET- CT in November 2018 which showed suspicious lymph nodes in the left neck and likely central compartment recurrence. Was seen by Dr. Noyola 06/2019 with plan for follow up imaging and surgery in 2019. Tg on 01/15/20 was 44.1 (antibodies negative). Subsequent CT neck on 01/28/20 re-demonstrated the the mass in the left thyroid bed and adjacent cervical nodes. He underwent re-excision on 02/26/20 with pathology confirming recurrent disease with positive margins and neural involvement. 07/10/20 MRI orbit face and neck confirmed recurrence in the left level III. He underwent resection with Dr. Noyola on 10/30/20 pathology revealed a large lesion with GUME+. MRI post-operatively on 11/12/20 showed additional focus of metastatic adenopathy in the left submental region. He then underwent adjuvant RT 70 Gy in 35 fractions from 12/21/20-02/10/21. PET-CT on 04/26/21 was negative. He is doing well with improving hoarseness, and no evidence of diana recurrence on exam today. I did not scope him, given the improvement in his voice. With the extent of surgery on his central neck and radiation, he may have some damage to the recurrent or the superior laryngeal nerve. Time will tell. I will check his Tg, Anti-TG AB, TSH, free T4, CMP, CBC today, vitamin D levels today. He will need a thyroid US, and DEXA scans in 2021. Performance Status ECOG 0 Plan Labs today will call with result Follow up in 3 months time Mr. Maldonado was encouraged to call with questions or concerns in the interim period. Billing Statement Total time of [32] minutes was spent preparing for the visit [2], obtaining HPI [6], examining the patient [5], reviewing diagnostic tests [3], discussing management options [7], coordinating care [2], and writing this note [7]. BUDNIK,VIRIDIANA MD Aug 03, 2021 13:02
[2021-08-04 09:10] LABS: THRYOGLOBULIN ANTIBODIES (ATA) < 1.0 IU/mL (0.0-0.9); THYROGLOBULIN QUANTITATIVE 3.8 ng/mL (1.4-29.2)
== END ==
LOC: M ONCR 09:56
PROVIDERS: ATTEND General Practice
DX: C73 Malignant neoplasm of thyroid gland (principal); Z92.3 Personal history of irradiation; Z92.21 Personal history of antineoplastic chemotherapy; Z79.899 Other long term (current) drug therapy
CPT/HCPCS: 36415; 80053; 82306; 84439; 84443; 85025; 86800; G0463

== ENCOUNTER → 2021-09-18 | Outpatient (CLI) | payer OTHER | LOC: M LABSMTC 12:29 | PROVIDERS: ATTEND Anesthesiology | DX: Z01.812 Encounter for preprocedural laboratory examination (principal); Z20.822 Contact with and (suspected) exposure to COVID-19 ==

== ENCOUNTER 2021-09-23 09:50 | Day surgery (SDC) | payer OTHER ==
[~2021-09-23] VITALS: Ht 167.6 cm; Wt 68.0 kg
[2021-09-23 13:33] VITALS: BP 115/64
== END 2021-09-23 14:09 | disposition home or self-care (01) ==
LOC: M OPP 09:50
PROVIDERS: ATTEND Internal Medicine Gastroenterology
DX: Z12.11 Encounter for screening for malignant neoplasm of colon (principal); K63.5 Polyp of colon; K57.30 Diverticulosis of large intestine without perforation or abscess without bleeding; K64.8 Other hemorrhoids; K22.70 Barrett's esophagus without dysplasia; K22.89 Other specified disease of esophagus; K44.9 Diaphragmatic hernia without obstruction or gangrene; Z79.899 Other long term (current) drug therapy; Z85.850 Personal history of malignant neoplasm of thyroid; Z92.3 Personal history of irradiation

== ENCOUNTER → 2021-11-12 | Outpatient (CLI) | payer OTHER ==
[2021-11-12 09:45] LABS: BASO % 0.5 % (0.0-1.0); EOS # 0.1 10^3/uL (0.0-0.5); EOS % 3.1 % (0.0-3.0); HEMATOCRIT 44.2 % (42.0-52.0); HEMOGLOBIN 15.3 g/dl (13.5-17.5); LYMPH % 23.4 % (24.0-44.0); MEAN CORPUSCULAR HEMOGLOBIN 31.8 pg (27.0-33.0); MEAN CORPUSCULAR HGB CONC 34.6 g/dl (32.0-36.5); MEAN CORPUSCULAR VOLUME 91.9 fl (80.0-96.0); MONO # 0.5 10^3/uL (0.0-0.8); NEUTROPHILS # 2.5 10^3/uL (1.5-8.5); NEUTROPHILS % 59.3 % (36.0-66.0); PLATELET COUNT, AUTOMATED 213 10^3/uL (150-450); RED BLOOD COUNT 4.81 10^6/uL (4.30-6.10); WHITE BLOOD COUNT 4.1 10^3/uL (4.0-10.0)
[2021-11-12 19:25] LABS: ALBUMIN 3.7 GM/DL (3.2-5.2); ALT/SGPT 35 U/L (12-78); BILIRUBIN,TOTAL 0.4 MG/DL (0.2-1.0); BLOOD UREA NITROGEN 16 MG/DL (7-18); CALCIUM LEVEL 9.1 MG/DL (8.8-10.2); CARBON DIOXIDE LEVEL 34 MEQ/L (21-32); CHLORIDE LEVEL 108 MEQ/L (98-107); CREATININE FOR GFR 1.04 MG/DL (0.70-1.30); FREE T4 1.41 NG/DL (0.76-1.46); GLOMERULAR FILTRATION RATE > 60.0 (>49); GLUCOSE, FASTING 95 MG/DL (70-100); POTASSIUM SERUM 4.5 MEQ/L (3.5-5.1); SODIUM LEVEL 143 MEQ/L (136-145); THYROID STIMULATING HORMONE 0.022 uIU/ML (0.358-3.740); TOTAL PROTEIN 6.8 GM/DL (6.4-8.2)
[2021-11-12 19:52] LABS: TOTAL 25(OH) VITAMIN D 41.8 NG/ML (30.0-100.0)
[2021-11-13 13:06] LABS: THRYOGLOBULIN ANTIBODIES (ATA) < 1.0 IU/mL (0.0-0.9); THYROGLOBULIN QUANTITATIVE 3.8 ng/mL (1.4-29.2)
== END ==
LOC: M ONCR 08:41
PROVIDERS: ATTEND General Practice
DX: C73 Malignant neoplasm of thyroid gland (principal); R68.2 Dry mouth, unspecified; Z92.3 Personal history of irradiation
CPT/HCPCS: 36415; 80053; 82306; 84439; 84443; 85025; 86800; G0463

== ENCOUNTER → 2021-11-25 | Outpatient (RCR) | payer OTHER | LOC: M PT 11-17 09:13 | PROVIDERS: ATTEND General Practice | DX: C73 Malignant neoplasm of thyroid gland (principal) ==

== ENCOUNTER 2021-12-16 14:59 | Outpatient (RCR) | payer OTHER | END 2021-12-25 | LOC: M PT 14:59 | PROVIDERS: ATTEND General Practice | DX: C73 Malignant neoplasm of thyroid gland (principal); I89.0 Lymphedema, not elsewhere classified ==

== ENCOUNTER → 2022-01-03 | Outpatient (CLI) | payer OTHER | LOC: M WHC 10:07 | PROVIDERS: ATTEND General Practice | DX: C73 Malignant neoplasm of thyroid gland (principal) ==

== ENCOUNTER → 2022-01-03 | Outpatient (CLI) | payer OTHER | LOC: M WHC 09:08 | PROVIDERS: ATTEND General Practice | DX: C73 Malignant neoplasm of thyroid gland (principal) ==

== ENCOUNTER → 2022-05-11 | Outpatient (CLI) | payer OTHER ==
[2022-05-11 12:01] LABS: ALBUMIN 3.7 GM/DL (3.2-5.2); ALT/SGPT 42 U/L (12-78); BILIRUBIN,TOTAL 0.5 MG/DL (0.2-1.0); BLOOD UREA NITROGEN 16 MG/DL (7-18); CALCIUM LEVEL 9.5 MG/DL (8.8-10.2); CARBON DIOXIDE LEVEL 26 MEQ/L (21-32); CHLORIDE LEVEL 106 MEQ/L (98-107); CREATININE FOR GFR 1.05 MG/DL (0.70-1.30); FREE T4 1.44 NG/DL (0.76-1.46); GLOMERULAR FILTRATION RATE > 60.0 (>49); GLUCOSE, FASTING 93 MG/DL (70-100); POTASSIUM SERUM 4.9 MEQ/L (3.5-5.1); SODIUM LEVEL 135 MEQ/L (136-145); THYROID STIMULATING HORMONE 0.022 uIU/ML (0.358-3.740); TOTAL PROTEIN 7.1 GM/DL (6.4-8.2)
[2022-05-11 13:24] LABS: THYROGLOBULIN ANTIBODY < 15.0 U/ML (<60.0)
== END ==
LOC: M ONCR 10:12
PROVIDERS: ATTEND General Practice
DX: C73 Malignant neoplasm of thyroid gland (principal)

== ENCOUNTER → 2022-11-02 | Outpatient (CLI) | payer OTHER | LOC: M RAD 14:04 | PROVIDERS: ATTEND General Practice | DX: C73 Malignant neoplasm of thyroid gland (principal) ==

== ENCOUNTER → 2022-11-09 | Outpatient (CLI) | payer MEDICARE, OTHER ==
[2022-11-09 10:05] LABS: ALBUMIN 3.9 G/DL (3.2-5.2); ALKALINE PHOSPHATASE 48 U/L (46-116); ALT/SGPT 42 U/L (7.0-40); AST/SGOT 29 U/L (<34); BILIRUBIN,TOTAL 0.6 MG/DL (0.3-1.2); BLOOD UREA NITROGEN 22 MG/DL (9-23); CALCIUM LEVEL 9.3 MG/DL (8.3-10.6); CARBON DIOXIDE LEVEL 30 MMOL/L (20-31); CHLORIDE LEVEL 105 MMOL/L (98-107); CREATININE FOR GFR 1.07 MG/DL (0.70-1.30); GLOMERULAR FILTRATION RATE > 60.0 (>49); GLUCOSE, FASTING 91 MG/DL (74-106); POTASSIUM SERUM 4.5 MMOL/L (3.5-5.1); SODIUM LEVEL 138 MMOL/L (136-145); TOTAL PROTEIN 6.9 G/DL (5.7-8.2)
[2022-11-09 10:06] LABS: THYROID STIMULATING HORMONE 0.087 uIU/ML (0.55-4.78)
[2022-11-09 10:07] LABS: FREE T4 1.83 NG/DL (0.89-1.76)
[2022-11-09 10:09] LABS: THYROGLOBULIN ANTIBODY < 15.0 U/ML (<60.0)
[2022-11-11 11:10] LABS: THRYOGLOBULIN ANTIBODIES (ATA) < 1.0 IU/mL (0.0-0.9); THYROGLOBULIN QUANTITATIVE 8.4 ng/mL (1.4-29.2)
== END ==
LOC: M ONCR 09:03
PROVIDERS: ATTEND General Practice
DX: C73 Malignant neoplasm of thyroid gland (principal); Z79.890 Hormone replacement therapy; Z92.3 Personal history of irradiation
CPT/HCPCS: 36415; 80053; 84439; 84443; 86800; G0463

== ENCOUNTER → 2023-04-10 | Outpatient (REF) | payer OTHER | LOC: M SFHCCLAY 09:11 | PROVIDERS: ATTEND Physician Assistant | DX: R35.0 Frequency of micturition (principal) ==

== ENCOUNTER → 2023-11-10 | Outpatient (CLI) | payer MEDICARE, OTHER ==
[2023-11-10 09:59] LABS: ALBUMIN 3.6 G/DL (3.2-5.2); ALKALINE PHOSPHATASE 49 U/L (46-116); ALT/SGPT 37 U/L (7.0-40); AST/SGOT 20 U/L (<34); BILIRUBIN,TOTAL 0.4 MG/DL (0.3-1.2); BLOOD UREA NITROGEN 22 MG/DL (9-23); CALCIUM LEVEL 8.9 MG/DL (8.3-10.6); CARBON DIOXIDE LEVEL 29 MMOL/L (20-31); CHLORIDE LEVEL 107 MMOL/L (98-107); GLOMERULAR FILTRATION RATE > 60.0 (>49); GLUCOSE, FASTING 87 MG/DL (74-106); POTASSIUM SERUM 4.3 MMOL/L (3.5-5.1); SODIUM LEVEL 141 MMOL/L (136-145); TOTAL PROTEIN 6.4 G/DL (5.7-8.2)
[2023-11-10 10:00] LABS: THYROID STIMULATING HORMONE 0.067 uIU/ML (0.55-4.78)
[2023-11-10 10:01] LABS: FREE T4 1.79 NG/DL (0.89-1.76)
[2023-11-11 13:09] LABS: THRYOGLOBULIN ANTIBODIES (ATA) < 1.0 IU/mL (0.0-0.9); THYROGLOBULIN QUANTITATIVE 34.4 ng/mL (1.4-29.2)
== END ==
LOC: M ONCR 08:30
PROVIDERS: ATTEND General Practice
DX: C73 Malignant neoplasm of thyroid gland (principal); Z71.2 Person consulting for explanation of examination or test findings; Z79.890 Hormone replacement therapy; Z79.899 Other long term (current) drug therapy; Z90.89 Acquired absence of other organs; Z92.3 Personal history of irradiation
CPT/HCPCS: 36415; 80053; 84439; 84443; 86800; G0463

== ENCOUNTER → 2023-11-21 | Outpatient (CLI) | payer MEDICARE, OTHER ==
[~2023-11-21] MED LIST changes: +GASTROGRAFIN SOLUTION 30ML As Ordered ONE; +ISOVUE-370 76% 100ML VIAL As Ordered ONE
== END ==
LOC: M RAD 14:36
PROVIDERS: ATTEND General Practice
DX: C73 Malignant neoplasm of thyroid gland (principal)
CPT/HCPCS: 70491; 71260; 74177; Q9963; Q9967

== ENCOUNTER → 2023-12-13 | Outpatient (CLI) | payer MEDICARE, OTHER ==
[~2023-12-13] MED LIST changes: -GASTROGRAFIN SOLUTION 30ML As Ordered ONE; -ISOVUE-370 76% 100ML VIAL As Ordered ONE
[2023-12-14 11:09] LABS: THRYOGLOBULIN ANTIBODIES (ATA) < 1.0 IU/mL (0.0-0.9); THYROGLOBULIN QUANTITATIVE 32.5 ng/mL (1.4-29.2)
== END ==
LOC: M LAB 09:53
PROVIDERS: ATTEND General Practice
DX: L73.0 Acne keloid (principal)

== ENCOUNTER → 2023-12-25 | Outpatient (CLI) | payer MEDICARE, OTHER | LOC: M PLARAD 08:08 | PROVIDERS: ATTEND General Practice | DX: C73 Malignant neoplasm of thyroid gland (principal) | CPT/HCPCS: 78815; A9552 ==

== ENCOUNTER → 2023-12-29 | Outpatient (CLI) | payer MEDICARE, OTHER | LOC: M ONCR 09:58 | PROVIDERS: ATTEND General Practice | DX: C73 Malignant neoplasm of thyroid gland (principal); C77.1 Secondary and unspecified malignant neoplasm of intrathoracic lymph nodes; C78.00 Secondary malignant neoplasm of unspecified lung; Z71.2 Person consulting for explanation of examination or test findings; Z79.890 Hormone replacement therapy; Z90.89 Acquired absence of other organs; Z92.3 Personal history of irradiation ==

== ENCOUNTER → 2024-04-08 | Outpatient (CLI) | payer MEDICARE, OTHER ==
[~2024-04-08] VITALS: Ht 167.6 cm; Wt 75.5 kg
[2024-04-08] MEDS: [UNRECOGNIZED DRUG - OTHER] IM SCH (08:14)
== END ==
LOC: M ONCR 08:01
PROVIDERS: ATTEND General Practice
DX: C73 Malignant neoplasm of thyroid gland (principal)
CPT/HCPCS: 96402; G0463; J3240

== ENCOUNTER → 2024-04-09 | Outpatient (CLI) | payer MEDICARE, OTHER ==
[~2024-04-09] VITALS: Ht 167.6 cm; Wt 75.4 kg
[2024-04-09] MEDS: [UNRECOGNIZED DRUG - OTHER] IM ONE (08:14)
== END ==
LOC: M ONCR 07:57
PROVIDERS: ATTEND General Practice
DX: C73 Malignant neoplasm of thyroid gland (principal)
CPT/HCPCS: 96402; G0463; J3240

== ENCOUNTER → 2024-07-09 | Outpatient (CLI) | payer MEDICARE, OTHER ==
[2024-07-09] MEDS: [UNRECOGNIZED DRUG - OTHER] IM SCH (08:33)
[2024-07-10 17:17] LABS: THYROGLOBULIN QUANTITATIVE 23.2 ng/mL (2.8-40.9)
== END ==
LOC: M ONCR 08:03
PROVIDERS: ATTEND General Practice
DX: C73 Malignant neoplasm of thyroid gland (principal)
CPT/HCPCS: 36415; 86800; 96402; G0463; J3240

== ENCOUNTER → 2024-07-10 | Outpatient (CLI) | payer MEDICARE, OTHER ==
[2024-07-10] MEDS: [UNRECOGNIZED DRUG - OTHER] IM ONE (08:21)
== END ==
LOC: M ONCR 08:04
PROVIDERS: ATTEND General Practice
DX: C73 Malignant neoplasm of thyroid gland (principal)
CPT/HCPCS: 96402; G0463; J3240

== ENCOUNTER → 2024-07-11 | Outpatient (CLI) | payer MEDICARE, OTHER ==
[~2024-07-11] VITALS: Ht 162.6 cm; Wt 70.9 kg
[2024-07-11 08:19] VITALS: BP 149/74; O2SAT 99
[2024-07-12 13:13] LABS: THRYOGLOBULIN ANTIBODIES (ATA) < 1 IU/mL (< or = 1); THYROGLOBULIN QUANTITATIVE 28.4 ng/mL (2.8-40.9)
== END ==
LOC: M ONCR 08:06
PROVIDERS: ATTEND General Practice
DX: C73 Malignant neoplasm of thyroid gland (principal)

== ENCOUNTER → 2024-10-16 | Outpatient (CLI) | payer MEDICARE, OTHER | LOC: M ONCR 08:28 | PROVIDERS: ATTEND General Practice | DX: C73 Malignant neoplasm of thyroid gland (principal); R22.33 Localized swelling, mass and lump, upper limb, bilateral; Z85.118 Personal history of other malignant neoplasm of bronchus and lung; Z92.3 Personal history of irradiation; Z90.79 Acquired absence of other genital organ(s); Z88.1 Allergy status to other antibiotic agents; Z79.899 Other long term (current) drug therapy ==

== ENCOUNTER → 2025-04-15 | Outpatient (CLI) | payer MEDICARE, OTHER ==
[2025-04-15 12:12] LABS: FREE T4 1.78 NG/DL (0.89-1.76)
[2025-04-16 13:27] LABS: THRYOGLOBULIN ANTIBODIES (ATA) < 1 IU/mL (< or = 1); THYROGLOBULIN QUANTITATIVE 35.3 ng/mL (2.8-40.9)
== END ==
LOC: M ONCR 07:39
PROVIDERS: ATTEND General Practice
DX: C73 Malignant neoplasm of thyroid gland (principal); Z79.899 Other long term (current) drug therapy; Z88.1 Allergy status to other antibiotic agents; Z90.89 Acquired absence of other organs; Z92.3 Personal history of irradiation
CPT/HCPCS: 36415; 84432; 84439; 84443; 86800; G0463

== ENCOUNTER → 2025-07-18 | Outpatient (REF) | payer OTHER ==
[2025-07-18 16:12] LABS: ALT/SGPT 25.0 U/L (7.0-40); AST/SGOT 22.0 U/L (<34); CALCIUM LEVEL 9.1 MG/DL (8.3-10.6); CARBON DIOXIDE LEVEL 32.0 MMOL/L (20-31); CHLORIDE LEVEL 106.0 MMOL/L (98-107); CHOLESTEROL LEVEL 188.0 MG/DL (<200); CHOLESTEROL RISK RATIO 3.86 (<5); CREATININE FOR GFR 0.97 MG/DL (0.70-1.30); GLOMERULAR FILTRATION RATE 85.6 (>49); LDL CHOLESTEROL 103.9 MG/DL (<100); NON-HDL-C 139.3 MG/DL; POTASSIUM SERUM 4.2 MMOL/L (3.5-5.1); PSA SCREENING 1.63 NG/ML (< 4.00); SODIUM LEVEL 143.0 MMOL/L (136-145); TRIGLYCERIDES LEVEL 177.0 MG/DL (<150)
[2025-07-18 16:16] LABS: FREE T4 1.74 NG/DL (0.89-1.76)
[2025-07-18 16:23] LABS: ESTIMATED AVERAGE GLUCOSE 94.0 MG/DL (60-110)
== END ==
LOC: M SFHCCLAY 08:02
PROVIDERS: ATTEND Physician Assistant
DX: K21.9 Gastro-esophageal reflux disease without esophagitis (principal); E04.1 Nontoxic single thyroid nodule; E78.2 Mixed hyperlipidemia; C73 Malignant neoplasm of thyroid gland; Z12.5 Encounter for screening for malignant neoplasm of prostate
CPT/HCPCS: 80053; 80061; 83036; 84439; 84443; G0103